=== PATIENT | male | born 1950 | race Caucasian/White ===

== ENCOUNTER 2024-09-05 05:35 | Day surgery (SDC) | payer OTHER ==
[~2024-09-05] VITALS: Ht 180.3 cm; Wt 97.6 kg
[2024-09-05] MEDS ORDERED: CEFAZOLIN SOD 2 GM in D5W 50 ML IV ONE (07:00)
[2024-09-05] MEDS ORDERED: BISACODYL 10 MG/SUPPOSITORY RC PRN (07:00)
[2024-09-05] MEDS ORDERED: LACTULOSE 20 GM/30 ML UDC PO PRN (07:00)
[2024-09-05] MEDS ORDERED: SCOPOLAMINE HYDROBROMIDE 1 MG PATCH .72 H (TRANSDERM-SCOP) TD ONE (07:00)
[2024-09-05] MEDS ORDERED: DIPHENHYDRAMINE HCL 25 MG CAPSULE PO PRN (07:00)
[2024-09-05] MEDS ORDERED: CELECOXIB 100 MG CAPSULE ONE (07:14)
[2024-09-05] MEDS ORDERED: ACETAMINOPHEN 500 MG TABLET ONE (07:14)
[2024-09-05] MEDS ORDERED: GABAPENTIN 300 MG CAPSULE ONE (07:15)
[2024-09-05] MEDS ORDERED: oxyCODONE HCL 10 MG TAB.ER.12H PO ONE (07:15)
[2024-09-05] MEDS: ACETAMINOPHEN 500 MG TABLET PO ONE (07:20)
[2024-09-05] MEDS: CELECOXIB 100 MG CAPSULE PO ONE (07:20)
[2024-09-05] MEDS: GABAPENTIN 300 MG CAPSULE PO ONE (07:20)
[2024-09-05] MEDS: SCOPOLAMINE HYDROBROMIDE 1 MG PATCH .72 H (TRANSDERM-SCOP) TD ONE (07:20)
[2024-09-05 08:57] VITALS: PULSE 74; RESP 12; TEMP 97.5; O2SAT 99
[2024-09-05] MEDS ORDERED: TAMSULOSIN HCL 0.4 MG CAP PO SCH (09:00)
[2024-09-05] MEDS ORDERED: fentaNYL CITRATE/PF 100 MCG/2 ML AMP ONE (10:35)
[2024-09-05] MEDS ORDERED: CEFAZOLIN 1 GM IVPB PREMIX 50 ML IV ONE (10:35)
[2024-09-05] MEDS ORDERED: BUPIVACAINE /PF 0.25% 30 ML VIAL INJ ONE (10:35)
[2024-09-05] MEDS ORDERED: SEVOFLURANE 15 MIN GAS INH ONE (10:35)
[2024-09-05] MEDS ORDERED: TRANEXAMIC ACID 1,000 MG/10 ML VIAL ONE (10:35)
[2024-09-05] MEDS ORDERED: VANCOMYCIN HCL 1000 MG/VIAL IV ONE (10:35)
[2024-09-05] MEDS ORDERED: MIDAZOLAM HCL 2 MG/2 ML VIAL (VERSED) ONE (10:35)
[2024-09-05] MEDS: oxyCODONE HCL 10 MG TAB.ER.12H PO ONE (10:35)
[2024-09-05] MEDS ORDERED: PROPOFOL 200MG/ 20ML VIAL (DIPRIVAN) IV ONE (10:35)
[2024-09-05] MEDS ORDERED: ONDANSETRON HCL 4 MG/2 ML VIAL ONE (10:35)
[2024-09-05] MEDS ORDERED: DEXAMETHASONE SOD PHOSPHATE 4 MG/ML VIAL ONE (10:35)
[2024-09-05] MEDS ORDERED: HYDROmorphone 1 MG/ML INJ. CARTRIDGE IVP PRN ×5 (11:00→11:45)
[2024-09-05] MEDS ORDERED: LORATADINE 10 MG TABLET PO PRN (11:00)
[2024-09-05] MEDS ORDERED: traMADol HCL HCL 50 MG TABLET (ULTRAM) PO PRN (11:00)
[2024-09-05] MEDS ORDERED: oxyCODONE HCL 5 MG TABLET PO PRN ×2 (11:00)
[2024-09-05] MEDS ORDERED: LABETALOL 100 MG/ 20ML VIAL IVP PRN (11:45)
[2024-09-05] MEDS ORDERED: ONDANSETRON HCL 4 MG/2 ML VIAL IVP PRN ×2 (11:45)
[2024-09-05] MEDS ORDERED: METOCLOPRAMIDE HCL 10 MG/2 ML VIAL IVP PRN ×2 (11:45→17:45)
[2024-09-05] MEDS ORDERED: LR 1,000 ML IV SCH (11:45)
[2024-09-05] MEDS ORDERED: hydrALAZINE HCL 20 MG/ML VIAL IVP PRN (11:45)
[2024-09-05] MEDS ORDERED: MEPERIDINE HCL/PF 25 MG/ML DISP.SYRIN IVP PRN (11:45)
[2024-09-05 12:30] VITALS: BP_SYST 158
[2024-09-05] MEDS ORDERED: ACETAMINOPHEN 500 MG TABLET PO SCH (14:00)
[2024-09-05] MEDS ORDERED: KETOROLAC TROMETHAMINE 10 MG TABLET (TORADOL) PO SCH (14:00)
[2024-09-05] MEDS: TAMSULOSIN HCL 0.4 MG CAP ONE (14:20)
[2024-09-05] MEDS ORDERED: ceFAZolin SODIUM 2 GM in D5W 50 ML IV SCH (18:00)
[2024-09-05] MEDS ORDERED: SENNOSIDES/DOCUSATE SODIUM 1 TAB TABLET(SENOKOT-S) PO SCH (21:00)
[2024-09-06] MEDS ORDERED: ASPIRIN 81 MG TAB.CHEW PO SCH (09:00)
[2024-09-06] MEDS ORDERED: CELECOXIB 200 MG CAPSULE PO SCH (11:00)
== END 2024-09-05 17:00 | disposition home or self-care (01) ==
LOC: SDS 05:35 → SMU 05:35 → EDSEX 10:00 → SDS 17:00
PROVIDERS: ATTEND Student in an Organized Health Care Education/Training Program
DX: M17.11 Unilateral primary osteoarthritis, right knee (principal); M25.761 Osteophyte, right knee; M25.561 Pain in right knee; I10 Essential (primary) hypertension; E66.9 Obesity, unspecified; K21.9 Gastro-esophageal reflux disease without esophagitis; Z68.30 Body mass index [BMI] 30.0-30.9, adult; G89.18 Other acute postprocedural pain; Z79.82 Long term (current) use of aspirin; Z79.899 Other long term (current) drug therapy; Z85.46 Personal history of malignant neoplasm of prostate
CPT/HCPCS: 27447; 97162; 64447; 73560; 97110; 97530; 97116; 88305; 88311; J3490 ×2; J0690 ×2; J0696; J1100; J2250; J2405; J2704; J3370; J3010; J7060 ×2; C1776 ×2; C1713 ×2; 96379